=== PATIENT | male | born 1930 | race Caucasian/White ===

== ENCOUNTER 2016-12-19 05:12 | Inpatient (IN) | payer OTHER ==
[2016-12-18 09:44] LABS: HEMATOCRIT 37.1 % (42.0-52.0); HEMOGLOBIN 12.6 gm/dL (14.0-18.0); MCH 33.3 pg (26.0-34.0); RBC 3.79 mil/uL (4.50-6.00); RDW 14.4 % (10.5-14.5); URINE BILIRUBIN NEGATIVE (Negative); URINE BLOOD 1+ (Negative); URINE COLOR YELLOW; URINE GLUCOSE-RANDOM* NEGATIVE (Negative); URINE KETONES NEGATIVE (Negative); URINE LEUKOCYTES-REFLEX NEGATIVE (Negative); URINE PROTEIN (DIPSTICK) 1+ (Negative); URINE UROBILINOGEN 0.2 E.U./dl (0.2-1.0); WBC 9.1 thou/uL (4.0-11.0)
[2016-12-18 09:56] LABS: PROTIME 10.7 Seconds (9.3-11.4)
[2016-12-18 09:57] LABS: ALBUMIN 3.2 g/dL (3.4-5.0); CREATININE 1.2 mg/dL (0.6-1.3); POTASSIUM 4.2 mmol/L (3.5-5.1); TOTAL BILIRUBIN 0.3 mg/dL (<0.1-1.0); TOTAL PROTEIN 7.1 g/dL (6.4-8.2)
[2016-12-18 10:06] LABS: CASTS None Seen /LPF (None Seen); CRYSTALS None Seen /LPF (None Seen); SQUAMOUS 4-10 Moderate /LPF (0-3); URINE RBC 0-2 Rare /HPF (0-2); URINE WBC-REFLEX None Seen /HPF (0-5)
[~2016-12-19] VITALS: Ht 167.6 cm; Wt 98.9 kg
--- NOTE | ~2016-12-19 | S ---
[facility] [place] [address] SURGICAL PATH RPT PROCEDURE Name: LJ LYLE Room #: 242-P DIS IN M.R.#: [id number] Admission: 12/19/16 Date of : 34 Discharge: 12/20/16 Report #: [id number] Path Case #: [id number] PATHOLOGY REPORT COLLECTION DATE: 12/19/2016 RECEIVED DATE: 12/19/2016 SUBMITTING PHYS: Dr. Wang Crowe OTHER PHYS: Dr. Greg Mallory SPECIMEN(S) RECEIVED: A.Right carotid plaque * * * * * * * * * * * * FINAL DIAGNOSIS: "Right carotid plaque," endarterectomy: - Calcific atherosclerosis. (CLW:; d/t: 12/22/16) PATHOLOGIST: Yarely Domingo M.D. REPORT ELECTRONICALLY SIGNED BY: Yarely Domingo M.D. DATE/TIME: 12/23/2016 14:12 * * * * * * * * * * * * GROSS PATHOLOGY: The specimen is received in formalin labeled "Lj Lyle right carotid plaque". Received is a tubular segment of pink-tate, rubbery, partially calcified tissue measuring 4.1 x 1.0 x 0.9 cm in greatest dimensions. The specimen is submitted representatively in cassette A1, following decalcification. (CAA; 12/19/2016) CLINICAL HISTORY: Carotid stenosis INITIAL CPT CODE(S): A; 06291, 69935 Professional services performed by [facility] at [place] [address] [place] [address] Technical services performed by [facility] at [address] [place] [address], [address] [address]. [facility] [address] [place] [address] SURGICAL PATH RPT PROCEDURE Name: LJ LYLE Room #: 242-P [facility] IN M.R.#: [id number] Admission: 12/19/16 Date of : 32 Discharge: 12/20/16 Report #: [id number] Path Case #: [id number] [facility] [address] [place] [id number] PHONE: [phone] DIRECTOR: Garcia Ivey M.D. * * * END OF REPORT * * *
--- NOTE | ~2016-12-19 | O ---
[facility] [place] [address] [place] [address] OPERATIVE REPORT Name: ELSYLJ Parvez Room #: 242-P [facility] IN M.R.#: [id number] Admission: 12/19/16 Attend Phys: Wang Crowe MD Discharge: 12/20/16 Date of : 32 Report #: [id number] THIS REPORT FOR: //name// CC: Greg Crowe DATE OF SERVICE: 12/19/2016 PREOPERATIVE DIAGNOSIS: Right carotid artery stenosis. POSTOPERATIVE DIAGNOSIS: Right carotid artery stenosis. OPERATION: Right carotid endarterectomy with patch closure. SURGEON: Wang Crowe M.D. WELL HEAD PUMPER: Garrison. ANESTHESIA: General. INDICATION: The patient is an 86-year-old, seen for Dr. Yo and Dr. Morgan. The patient has high-grade right internal carotid stenosis. This has been asymptomatic, but has been seen to grow more severe. Arteriography shows a near-total occlusion of this vessel. The left side has more trivial disease. FINDINGS AND TECHNIQUE: After general anesthesia was established, an oblique right neck incision was made. Common facial vein was divided. Common internal and external carotid arteries were identified and controlled; 10,000 units of heparin were given. Continuous electroencephalographic monitoring was performed during the operation and the carotid vessels were occluded. No EEG changes were noted. The carotid arteriotomy was made. The endarterectomy was performed without creating a distal flap. Neointima was inspected and all loose debris was removed. Tacking sutures were placed at the transition zone. When the endarterectomy was deemed to be satisfactory, the carotid arteriotomy was closed with a thin-walled pericardial patch and running Prolene. Prior to finishing the closure, the carotid vessels were backbled and the artery was flushed with heparinized saline. Flow was established first through the external, then the internal carotid artery. Protamine 25 mg was given. When hemostasis was satisfactory, wound was irrigated with antibiotic solution. Swati drain was brought out through the bottom pole of the incision and the wound was closed in layers. The patient was [facility] [address] [place] [address] OPERATIVE REPORT Name: LJ CHIN Room #: 242-P [facility] IN M.R.#: [id number] Admission: 12/19/16 Attend Phys: Wang Crowe MD Discharge: 12/20/16 Date of : 32 Report #: [id number] taken to the recovery area in good condition, having tolerated the procedure well. Neurologic progress was monitored in the recovery area, but the EEG remained normal throughout the case. All counts reported as correct. <ELECTRONICALLY SIGNED> By: Wang Crowe MD 12/31/16 1641 1104 1207 Wang Crowe MD /nt
--- NOTE | ~2016-12-19 | HC ---
[facility] [address] CONSULTATION Name: ELSYLJ Room #: 242-P [facility] IN M.R.#: [id number] Admission: 12/19/16 Attend Phys: Wang Crowe MD Discharge: 12/20/16 Date of : 32 Report #: [id number] THIS REPORT FOR: //name// CC: Greg Crowe REASON FOR CONSULTATION: Coronary artery disease, preoperative evaluation. HISTORY OF PRESENT ILLNESS: The patient is an 86-year-old gentleman with a history of remote bypass surgery with left internal mammary to the LAD and a free right internal mammary from the mammary to the marginal branch. His history includes diabetes, dyslipidemia, hypertension, and recent very severe progression of his right internal carotid artery disease. He had had left leg weakness, and this was evaluated as an outpatient with an MRI, as central neurologic event was considered. The MRI was negative for stroke. Carotid duplex demonstrated critical narrowing of the right internal carotid artery, which was bulky and heavily calcified. Cerebral angiography has revealed subtotal occlusion of the right internal carotid artery with a somewhat sluggish flow in the right carotid. He is now admitted and evaluated for carotid endarterectomy. The patient denies chest heaviness or pressure. He did have an abnormal stress study earlier in the year leading to angiography which demonstrated occluded walker river vasculature and patent mammary to the LAD and circumflex systems. Medical therapy was recommended. The patient denies heart failure symptoms, palpitations, near syncope, or syncope. ALLERGIES: No known drug allergies. MEDICATIONS: Include allopurinol 300 mg daily, aspirin 325 mg daily, simvastatin 20 mg daily, metoprolol 25 mg daily. PAST MEDICAL HISTORY: His past history and medical records have been reviewed and include a history of coronary artery disease, dyslipidemia, diabetes, remote pulmonary embolism, right subclavian stenosis, total right knee replacement, bilateral cataract excision, appendectomy, tonsillectomy, and gout. SOCIAL HISTORY: He is and nonsmoker. FAMILY HISTORY: Unremarkable for premature coronary artery disease. REVIEW OF SYSTEMS: All systems negative except as that noted above. PHYSICAL EXAMINATION: GENERAL: He is a pleasant gentleman, who was seen in the preoperative holding area. VITAL SIGNS: Blood pressure is 134/83, heart rate is 60 and regular, temperature is afebrile, 5 feet 6 inches tall, 205 pounds. HEENT: There are neither xanthelasma, subcutaneous xanthomata, oral mucosa, [facility] [address] [place] [address] CONSULTATION Name: ELSYLJ Room #: 242-P [facility] IN [facility].#: [id number] Admission: 12/19/16 Attend Phys: Wang Crowe MD Discharge: 12/20/16 Date of : 32 Report #: [id number] digital cyanosis, or kyphoscoliosis present. CHEST: Clear to auscultation and percussion. CARDIAC: Reveals a regular rate and rhythm with a normal S1 and S2. There is right carotid bruit, soft systolic murmur at the base. ABDOMEN: Soft and nontender. EXTREMITIES: Without cyanosis, clubbing, or edema. Radial pulses are 2+. NEUROLOGIC: He is alert with a nonfocal exam. LABORATORY DATA: Sodium 137, potassium 4.2, creatinine 1.2, glucose 138. Hemoglobin 12, white count 37. Chest x-ray demonstrates mild interstitial lung changes. IMPRESSION: 1. Severe right internal carotid artery stenosis. 2. Coronary artery disease, clinically stable. 3. Prior 2-vessel bypass. 4. Hypertension. 5. Diabetes. 6. Dyslipidemia. 7. Peripheral vascular disease. RECOMMENDATIONS: 1. Resume beta blockade, as his hemodynamics will allow. 2. Continued efforts towards aggressive risk factor modification. 3. We will follow along with you. Thank you for asking me to participate in this patient's care. <ELECTRONICALLY SIGNED> By: Ricco Morgan MD, [facility] 12/24/16 1309 0930 1109 Ricco Morgan MD, FACC /nt
--- NOTE | ~2016-12-19 | H ---
[facility] [place] [place] [address] HISTORY AND PHYSICAL Name: LJ CHIN Room #: 242-P [facility] IN M.R.#: [id number] Admission: 12/19/16 Attend Phys: Wang Crowe MD Discharge: 12/20/16 Date of : 32 Report #: [id number] THIS REPORT FOR: //name// For History and Physical, please see office documentation/handwritten note in the patient's medical record. <ELECTRONICALLY SIGNED> By: Wang Crowe MD 12/31/16 1641 0747 Wang Crowe MD /
[~2016-12-19 05:12] MED LIST: ALLOPURINOL 30300 M2 PO; ASPIRIN325 PO; FIBER500 MG PO; IBUPROFEN 200200 M1 PO; LUMIGAN2.5 M1 OP; METOPROLOL TART25 MG PO; TIMOLOL MA0.25 %/52 OPHTHALMIC; TYLENOL PM EX-1 EACH PO; ZOCOR20 MG PO
[2016-12-20 05:32] LABS: HEMATOCRIT 31.5 % (42.0-52.0); HEMOGLOBIN 10.8 gm/dL (14.0-18.0); MCH 33.8 pg (26.0-34.0); MCHC 34.3 g/dL (28.0-37.0); MCV 98.5 fL (80.0-100.0); RBC 3.2 mil/uL (4.50-6.00); RDW 14.2 % (10.5-14.5); WBC 11.3 thou/uL (4.0-11.0)
[2016-12-20 05:41] LABS: CALCIUM 7.8 mg/dL (8.5-10.1); CREATININE 1.3 mg/dL (0.6-1.3); POTASSIUM 4.3 mmol/L (3.5-5.1)
== END 2016-12-20 15:45 | disposition home or self-care (01) | DRG 38 ==
LOC: ICU 05:12 → TBA 05:12 → EDSTATUS 08:43 → PRE 08:55 → OR 11:37 → ICU 13:34
PROVIDERS: Physician Assistant; Surgery Vascular Surgery
PROC: 03CM0ZZ Extirpation of Matter from Right External Carotid Artery, Open Approach (ICD-10-PCS; principal; 2016-12-19)
PROC: 03U Upper Arteries, Supplement (ICD-10-PCS; principal; 2016-12-19)
DX: I65.21 Occlusion and stenosis of right carotid artery (principal); E44.1 Mild protein-calorie malnutrition; I25.10 Atherosclerotic heart disease of native coronary artery without angina pectoris; E78.5 Hyperlipidemia, unspecified; Z96.651 Presence of right artificial knee joint; I10 Essential (primary) hypertension; M10.9 Gout, unspecified; E11.51 Type 2 diabetes mellitus with diabetic peripheral angiopathy without gangrene; Z95.1 Presence of aortocoronary bypass graft; Z79.82 Long term (current) use of aspirin; Z98.42 Cataract extraction status, left eye; Z98.41 Cataract extraction status, right eye; Z90.49 Acquired absence of other specified parts of digestive tract; Z82.49 Family history of ischemic heart disease and other diseases of the circulatory system; Z86.711 Personal history of pulmonary embolism; I73.9 Peripheral vascular disease, unspecified
CPT/HCPCS: 10078; 48888; 50010; 50101; 50386; 50417; 50455; 51301; 51751; 52279; 54118; 56524; 56526; 56527; 56528; 56534; 62110; 62900; 65040; 65043; 70005

== ENCOUNTER → 2017-01-26 | Outpatient (CLI) | payer OTHER | LOC: MRI 10:32 → LAB 15:09 | DX: M47.816 Spondylosis without myelopathy or radiculopathy, lumbar region (principal); M54.5 Low back pain ==

== ENCOUNTER → 2020-04-10 | Outpatient (CLI) | payer OTHER | LOC: SJCVC 13:42 | PROVIDERS: ATTEND Internal Medicine | DX: I25.810 Atherosclerosis of coronary artery bypass graft(s) without angina pectoris (principal); I10 Essential (primary) hypertension; E78.5 Hyperlipidemia, unspecified; I65.23 Occlusion and stenosis of bilateral carotid arteries; E11.9 Type 2 diabetes mellitus without complications; G61.81 Chronic inflammatory demyelinating polyneuritis; I73.9 Peripheral vascular disease, unspecified; E78.00 Pure hypercholesterolemia, unspecified; M17.0 Bilateral primary osteoarthritis of knee; Z79.82 Long term (current) use of aspirin; Z79.899 Other long term (current) drug therapy; Z95.1 Presence of aortocoronary bypass graft; Z82.49 Family history of ischemic heart disease and other diseases of the circulatory system; Z87.891 Personal history of nicotine dependence ==

== ENCOUNTER → 2020-10-10 | Outpatient (CLI) | payer OTHER | LOC: SJCVCIMAG 09:10 | PROVIDERS: ATTEND Internal Medicine | DX: I65.23 Occlusion and stenosis of bilateral carotid arteries (principal); I25.10 Atherosclerotic heart disease of native coronary artery without angina pectoris; I49.3 Ventricular premature depolarization; I10 Essential (primary) hypertension; E78.5 Hyperlipidemia, unspecified; I73.9 Peripheral vascular disease, unspecified; E11.9 Type 2 diabetes mellitus without complications; G61.81 Chronic inflammatory demyelinating polyneuritis; Z79.82 Long term (current) use of aspirin; Z79.899 Other long term (current) drug therapy; Z87.891 Personal history of nicotine dependence ==

== ENCOUNTER → 2021-04-10 | Outpatient (CLI) | payer OTHER | LOC: SJCVC 14:00 | PROVIDERS: ATTEND Internal Medicine | DX: R94.31 Abnormal electrocardiogram [ECG] [EKG] (principal); R00.1 Bradycardia, unspecified; I25.10 Atherosclerotic heart disease of native coronary artery without angina pectoris; I10 Essential (primary) hypertension; E78.5 Hyperlipidemia, unspecified; I65.23 Occlusion and stenosis of bilateral carotid arteries; I73.9 Peripheral vascular disease, unspecified; E11.51 Type 2 diabetes mellitus with diabetic peripheral angiopathy without gangrene; G61.81 Chronic inflammatory demyelinating polyneuritis; M17.0 Bilateral primary osteoarthritis of knee; E78.00 Pure hypercholesterolemia, unspecified; Z90.49 Acquired absence of other specified parts of digestive tract; Z98.61 Coronary angioplasty status; Z79.82 Long term (current) use of aspirin; Z79.899 Other long term (current) drug therapy; Z87.891 Personal history of nicotine dependence; Z86.718 Personal history of other venous thrombosis and embolism; Z82.49 Family history of ischemic heart disease and other diseases of the circulatory system ==

== ENCOUNTER 2021-04-27 08:29 | Emergency (ER) | payer OTHER ==
[~2021-04-27] VITALS: Ht 167.6 cm; Wt 89.4 kg
[2021-04-27] MEDS ORDERED: B-125000 MC1 SUBLING (08:59)
[2021-04-27] MEDS ORDERED: ASA81BEC PO (08:59)
[2021-04-27] MEDS ORDERED: COZAAR 25 MG TA25 M1 PO (08:59)
[2021-04-27] MEDS ORDERED: CELLCEPT500 MG PO (09:00)
[2021-04-27] MEDS ORDERED: LATANOPROST 0.2.5 ML OPHTHALMIC (09:01)
[2021-04-27] MEDS ORDERED: DETROL2 M1 PO (09:01)
[2021-04-27 09:36] VITALS: BP 162/57
== END 2021-04-27 09:46 | disposition home or self-care (01) ==
LOC: ER 08:29
DX: M79.652 Pain in left thigh (principal); I10 Essential (primary) hypertension; Z95.1 Presence of aortocoronary bypass graft; Z90.49 Acquired absence of other specified parts of digestive tract; Z90.89 Acquired absence of other organs; Z79.82 Long term (current) use of aspirin; Z79.899 Other long term (current) drug therapy; Z72.89 Other problems related to lifestyle

== ENCOUNTER → 2021-10-10 | Outpatient (CLI) | payer OTHER ==
[~2021-10-10] MED LIST changes: +ASA81BEC PO; +B-125000 MC1 SUBLING; +CELLCEPT500 MG PO; +COZAAR 25 MG TA25 M1 PO; +DETROL2 M1 PO; +LATANOPROST 0.2.5 ML OPHTHALMIC
== END ==
LOC: SJCVC 13:23
PROVIDERS: ATTEND Internal Medicine
DX: R94.31 Abnormal electrocardiogram [ECG] [EKG] (principal); I25.10 Atherosclerotic heart disease of native coronary artery without angina pectoris; I10 Essential (primary) hypertension; E78.5 Hyperlipidemia, unspecified; I73.9 Peripheral vascular disease, unspecified; I65.23 Occlusion and stenosis of bilateral carotid arteries; E11.9 Type 2 diabetes mellitus without complications; G61.81 Chronic inflammatory demyelinating polyneuritis; I70.8 Atherosclerosis of other arteries; M48.00 Spinal stenosis, site unspecified; M17.10 Unilateral primary osteoarthritis, unspecified knee; I26.99 Other pulmonary embolism without acute cor pulmonale; E78.00 Pure hypercholesterolemia, unspecified; Z95.1 Presence of aortocoronary bypass graft; Z87.891 Personal history of nicotine dependence; Z72.89 Other problems related to lifestyle; Z79.82 Long term (current) use of aspirin; Z79.899 Other long term (current) drug therapy